=== PATIENT | female | born 1980 | race Caucasian/White ===

== ENCOUNTER 2017-09-10 16:00 | Emergency (ER) | payer OTHER ==
[~2017-09-10] VITALS: Ht 149.9 cm; Wt 95.0 kg
[~2017-09-10 16:00] MED LIST: AMOXICILLIN500 MG PO; CIPROFLOXACN500 MG PO; FLEXERIL PO; LORTAB 5-325 MG1 TAB PO; MOTRIN800 MG PO; PROTONIX40 MG PO; ULTRAM50 M1 PO; ZOFRAN ODT4 MG PO
[2017-09-10] MEDS ORDERED: PRENATA4 PO (16:07)
[2017-09-10 17:21] LABS: HEMATOCRIT 40.2 % (37.0-47.0); HEMOGLOBIN 12.9 g/dl (12.0-16.0); IMMATURE GRANULOCYTES 0.3 % (0.0-1.0); MEAN CELL VOLUME 79.6 fL CALC (80.0-100.0); MEAN CORPUSCULAR HGB 25.5 pG CALC (26.0-32.0); MEAN CORPUSCULAR HGB CONC 32.1 g/L CALC (32.0-36.0); NEUT# 6.3 thou/uL (2.00-7.15); RED BLOOD COUNT 5.05 mill/uL (4.20-5.60); RED CELL DISTRI WIDTH 14.5 % (11.5-15.5)
[2017-09-10 17:24] LABS: URINE BLOOD DIPSTICK NEGATIVE (NEGATIVE); URINE COLOR YELLOW; URINE GLUCOSE - DIPSTICK NEGATIVE (NEGATIVE); URINE KETONE TRACE mg/dL (NEGATIVE); URINE LEUK ESTERASE NEGATIVE (NEGATIVE); URINE NITRITE - DIPSTICK NEGATIVE (Negative); URINE PROTEIN - DIPSTICK NEGATIVE (NEG-TRACE); URINE SPECIFIC GRAVITY 1.025
[2017-09-10 17:30] LABS: URINE BILIRUBIN - DIPSTICK SMALL (NEGATIVE); URINE CLARITY CLEAR
[2017-09-10 17:45] LABS: ALBUMIN 4.5 g/dL (3.2-5.0); ALKALINE PHOSPHATASE 96 u/l (38-126); ANION GAP 15 (6-22 (CALC)); BILIRUBIN, TOTAL 0.3 mg/dL (0.0-1.4); BUN 12 mg/dL (7-17); BUN/CREATININE RATIO 19 (12-20 (CALC)); CALCIUM 9.5 mg/dL (8.4-10.2); CARBON DIOXIDE 25 mmol/l (22-30); CHLORIDE 106 mmol/l (95-108); CREATININE 0.6 mg/dL (0.5-1.0); GFR > 60 ML/MIN (>=60 (CALC)); GFR FOR AFR.AMER. > 60 ML/MIN (>=60 (CALC)); GLUCOSE 91 mg/dL (65-105); POTASSIUM 3.5 mmol/l (3.5-5.1); SGOT/AST 19 u/l (14-36); SGPT/ALT 33 u/l (9-52); SODIUM 142 mmol/l (137-146); TOTAL PROTEIN 8.2 g/dL (6.3-8.2)
[2017-09-10 19:01] LABS: BETA-HCG, QUANT(RESULT NUMBER) 27335 mIU/mL
[2017-09-10 19:05] VITALS: BP 111/65
== END 2017-09-10 19:05 | disposition home or self-care (01) | DRG 778 ==
LOC: ED 16:00
PROVIDERS: Emergency Medicine
DX: O20.0 Threatened abortion (principal); Z3A.08 8 weeks gestation of pregnancy

== ENCOUNTER 2021-05-26 14:13 | Emergency (ER) | payer MEDICAID ==
[~2021-05-26] VITALS: Ht 149.9 cm; Wt 98.0 kg
[~2021-05-26 14:13] MED LIST changes: +PRENATA4 PO
[2021-05-26] MEDS ORDERED: ZOFRAN4 MG/TAB PO (17:45)
[2021-05-26 17:47] VITALS: BP 120/70
== END 2021-05-26 17:54 | disposition home or self-care (01) ==
LOC: ED 14:13
DX: U07.1 COVID-19 (principal)

== ENCOUNTER 2021-06-08 11:27 | Emergency (ER) | payer MEDICAID ==
[~2021-06-08] VITALS: Ht 149.9 cm; Wt 97.7 kg
[~2021-06-08 11:27] MED LIST changes: +ZOFRAN4 MG/TAB PO
[2021-06-08] MEDS ORDERED: VENTOLIN HFA IN (13:18)
[2021-06-08] MEDS ORDERED: TESSALON PERLE100 MG PO (13:18)
[2021-06-08 13:59] VITALS: BP 131/66
== END 2021-06-08 14:04 | disposition home or self-care (01) ==
LOC: ED 11:27
DX: R05 Cough (principal); Z86.16 Personal history of COVID-19

== ENCOUNTER 2023-05-29 21:06 | Emergency (ER) | payer MEDICAID ==
[~2023-05-29] VITALS: Ht 149.9 cm; Wt 86.0 kg
[~2023-05-29 21:06] MED LIST changes: +TESSALON PERLE100 MG PO; +VENTOLIN HFA IN
[2023-05-29 21:19] VITALS: BP 117/84
[2023-05-29 21:51] LABS: BASO% 0.3 % (0-3); EOS% 0.5 % (0-8); HEMATOCRIT 36.6 % (37.0-47.0); HEMOGLOBIN 11.2 g/dl (12.0-16.0); IMMATURE GRANULOCYTES 0.1 % (0.0-5.0); LYMPH% 13.1 % (15-41); MEAN CORPUSCULAR HGB 22.7 pG CALC (26.0-32.0); MEAN CORPUSCULAR HGB CONC 30.6 g/dL CAL (32.0-36.0); MONO% 4.5 % (2-13); NEUT# 7.76 thou/uL (2.00-7.15); NEUT% 81.5 % (42-76); RED BLOOD COUNT 4.94 mill/uL (4.20-5.60); RED CELL DISTRI WIDTH 14.8 % (11.5-15.5)
[2023-05-29 21:58] LABS: MEAN CELL VOLUME 74.1 fL CALC (80.0-100.0)
[2023-05-29 22:03] LABS: ALBUMIN 4.5 g/dL (3.2-5.0); ALKALINE PHOSPHATASE 111 u/l (38-126); AMYLASE 75 u/l (30-110); ANION GAP 17 (6-22 (CALC)); BUN 14 mg/dL (7-17); BUN/CREATININE RATIO 20 (12-20 (CALC)); CARBON DIOXIDE 21 mmol/l (22-30); CHLORIDE 105 mmol/l (95-108); CREATININE 0.7 mg/dL (0.5-1.0); GFR FOR AFR.AMER. > 60 ML/MIN (>=60 (CALC)); GFR OTHER RACES > 60 ML/MIN (>=60 (CALC)); LIPASE 80 u/l (23-300); SGOT/AST 31 u/l (14-36); SODIUM 139 mmol/l (137-146); TOTAL PROTEIN 8.9 g/dL (6.3-8.2)
[2023-05-29 22:06] LABS: BILIRUBIN, TOTAL 0.5 mg/dL (0.02-1.3)
[2023-05-29 22:25] LABS: URINE BLOOD DIPSTICK Large (NEGATIVE); URINE COLOR Yellow; URINE GLUCOSE - DIPSTICK Negative (NEGATIVE); URINE KETONE Trace mg/dL (NEGATIVE); URINE LEUK ESTERASE Trace (NEGATIVE); URINE NITRITE - DIPSTICK Positive (Negative); URINE PH 5.5 (4.5-8.0); URINE PROTEIN - DIPSTICK 30 mg/dL (NEG-TRACE); URINE SPECIFIC GRAVITY >=1.030; URINE UROBILINOGEN - DIPSTICK 0.2 E.U./dL (0.2)
[2023-05-29 22:26] LABS: URINE BACTERIA MANY hpf; URINE SQUAMOUS EPITHELIAL CELL MANY EPI/hpf (0-FEW)
[2023-05-29 23:30] VITALS: BP 102/61
[2023-05-30 00:10] VITALS: BP 111/70
[2023-05-30] MEDS ORDERED: ONDANSETRON4 MG PO (00:56)
[2023-05-30] MEDS ORDERED: ULTRAM50 MG PO (00:56)
[2023-05-30] MEDS ORDERED: CIPROFLOXACN500 MG PO (00:56)
[2023-05-30 00:58] VITALS: BP 111/70
== END 2023-05-30 01:09 | disposition home or self-care (01) ==
LOC: ED 21:06
PROVIDERS: Emergency Medicine
DX: K52.9 Noninfective gastroenteritis and colitis, unspecified (principal); N39.0 Urinary tract infection, site not specified; B96.1 Klebsiella pneumoniae [K. pneumoniae] as the cause of diseases classified elsewhere; Z20.822 Contact with and (suspected) exposure to COVID-19
CPT/HCPCS: Q9967

== ENCOUNTER 2023-10-06 10:06 | Emergency (ER) | payer SELFPAY ==
[~2023-10-06] VITALS: Ht 149.9 cm; Wt 79.0 kg
[~2023-10-06 10:06] MED LIST changes: +ONDANSETRON4 MG PO; +ULTRAM50 MG PO
[2023-10-06 13:54] LABS: BASO% 0.7 % (0-3); EOS% 1.6 % (0-8); HEMATOCRIT 36.2 % (37.0-47.0); HEMOGLOBIN 10.7 g/dl (12.0-16.0); IMMATURE GRANULOCYTES 0.1 % (0.0-5.0); MEAN CELL VOLUME 74.3 fL CALC (80.0-100.0); MEAN CORPUSCULAR HGB CONC 29.6 g/dL CAL (32.0-36.0); MONO% 6.7 % (2-13); NEUT# 6.19 thou/uL (2.00-7.15); NEUT% 58.9 % (42-76); RED BLOOD COUNT 4.87 mill/uL (4.20-5.60); RED CELL DISTRI WIDTH 15.9 % (11.5-15.5)
[2023-10-06 14:17] LABS: ALBUMIN 4.3 g/dL (3.2-5.0); ALKALINE PHOSPHATASE 103 u/l (38-126); ANION GAP 12 (6-22 (CALC)); BILIRUBIN, TOTAL 0.3 mg/dL (0.02-1.3); BUN 15 mg/dL (7-17); BUN/CREATININE RATIO 23 (12-20 (CALC)); CARBON DIOXIDE 24 mmol/l (22-30); CHLORIDE 108 mmol/l (95-108); CREATININE 0.7 mg/dL (0.5-1.0); GFR FOR AFR.AMER. > 60 ML/MIN (>=60 (CALC)); GFR OTHER RACES > 60 ML/MIN (>=60 (CALC)); SGOT/AST 24 u/l (14-36); SODIUM 140 mmol/l (137-146); TOTAL PROTEIN 8.2 g/dL (6.3-8.2)
[2023-10-06 16:05] LABS: URINE BILIRUBIN - DIPSTICK Negative (NEGATIVE); URINE BLOOD DIPSTICK Moderate (NEGATIVE); URINE GLUCOSE - DIPSTICK Negative (NEGATIVE); URINE KETONE Negative (NEGATIVE); URINE LEUK ESTERASE Trace (NEGATIVE); URINE PH 5.5 (4.5-8.0); URINE PROTEIN - DIPSTICK Trace mg/dL (NEG-TRACE); URINE SPECIFIC GRAVITY >=1.030; URINE UROBILINOGEN - DIPSTICK 0.2 E.U./dL (0.2)
[2023-10-06 16:18] LABS: URINE COLOR Yellow; URINE NITRITE - DIPSTICK Positive (Negative)
[2023-10-06 16:19] LABS: URINE BACTERIA MODERATE hpf; URINE CALCIUM OXALATE CRYSTALS MODERATE lpf; URINE MUCUS MANY hpf (NONE-FEW); URINE SQUAMOUS EPITHELIAL CELL MANY EPI/hpf (0-FEW)
[2023-10-06] MEDS ORDERED: ZOFRAN4 MG/TAB PO (16:35)
[2023-10-06] MEDS ORDERED: ANTI-DIARRHEAL2 M1 PO (16:35)
[2023-10-06 16:59] VITALS: BP 124/82
== END 2023-10-06 17:00 | disposition home or self-care (01) | DRG 392 ==
LOC: ED 10:06
PROVIDERS: Emergency Medicine
DX: R11.2 Nausea with vomiting, unspecified (principal); R19.7 Diarrhea, unspecified; Z20.822 Contact with and (suspected) exposure to COVID-19